=== PATIENT | female | born 1975 | race Two or more races ===

== ENCOUNTER → 2019-02-18 | Outpatient (CLI) | payer OTHER | END | disposition home or self-care (01) | LOC: SONOGRAMA 08:34 | DX: E04.1 Nontoxic single thyroid nodule (principal) ==

== ENCOUNTER 2021-09-20 10:12 | Outpatient (CLI) | payer OTHER | END 2021-09-20 10:14 | disposition home or self-care (01) | LOC: SONOGRAMA 10:12 | PROVIDERS: ATTEND Pathology Anatomic Pathology & Clinical Pathology | DX: E04.1 Nontoxic single thyroid nodule (principal) ==